=== PATIENT | male | born 1955 | race Caucasian/White ===

== ENCOUNTER 2023-09-18 11:32 | Emergency (ER) | payer MEDICARE, OTHER ==
[~2023-09-18] VITALS: Ht 165.1 cm; Wt 90.9 kg
[2023-09-18 12:19] VITALS: BP 155/87; PULSE 85; TEMP 98.2; O2SAT 97
[2023-09-18] MEDS ORDERED: NAPR-56 PO (13:37)
[2023-09-18] MEDS ORDERED: CYCL-1 PO (13:37)
[2023-09-18 14:03] VITALS: RESP 18
[2023-09-18] MEDS: ketorolac trometh inj. 60 MG/2 ML VIAL IM ONE (14:03)
== END 2023-09-18 14:05 | disposition home or self-care (01) ==
LOC: ER 11:33
DX: S73.192A Other sprain of left hip, initial encounter (principal); X58.XXXA Exposure to other specified factors, initial encounter; Y93.89 Activity, other specified; Y92.89 Other specified places as the place of occurrence of the external cause; Y99.8 Other external cause status
CPT/HCPCS: 73502; 73552; 96372; 99284; J1885